=== PATIENT | male | born 1995 | race Two or more races ===

== ENCOUNTER 2025-06-05 16:53 | Emergency (ER) | payer OTHER ==
[~2025-06-05] VITALS: Ht 172.7 cm; Wt 100.0 kg
--- NOTE | 2025-06-05 17:19 | ED.PDOC ---
HPI Comments HPI: 29 year old male presents to the emergency department via EMS with a chief compliant of syncope onset today (06/05/25). Per EMS, patient donated Plasma earlier today, donates twice a week, was at home taking a shower when he experienced a syncopal episode. Patient states he is currently experiencing generalized weakness as well as LT mid thoracic ribcage pain. Upon EMS arrival, patient had orthostat positive, BP 89/50, HR 40, fluids were given in route to ED. Patient states syncopal episode was not witnessed, lasted less than a minute and second episode occurred in route to ED, was witnessed by EMS. No other symptoms or modifying factors present at this time. Initial Vitals BP: 112/76 HR: 86 RR: 16 O2: 99% Temp: 97.7F Past Medical History: Denies Past Surgical History:Denies Social History: Denies ETOH, smoking, and drug use. Medications: Denies Allergies: NKDA HPI: Poor Historian. Past Medical History: Past Surgical History: REVIEW OF SYSTEMS: CONSTITUTIONAL: Denies acute: fever, diaphoresis, chills, HEAD: Denies acute: headache, photophobia Eyes: Denies acute: Double vision, vision loss, eye pain, eye discharge. EARS: Denies acute: tinnitus, hearing loss, ear discharge, ear pain, THROAT: Denies acute: sore throat, swelling, difficulty swallowing , pain with swallowing, change in voice. NECK: Denies acute: neck pain, neck swelling, stiff neck. HEART: Denies acute : chest pain, palpitations, LUNGS: Denies acute: SOB, wheezing, cough, hemoptysis ABDOMEN: Denies acute: abdominal pain, Nausea, Vomiting, diarrhea, melena , hematemesis, hematochezia SKIN: Denies acute: rash, redness, lesions, itchiness. EXTREMITIES: Denies acute: calf pain, numbness, tingling, weakness, denies pain in extremity. Denies acute: Low back pain. Neuro: Denies acute: focal neurological deficit, motor or sensory focal neurological deficit, tremors, seizure like activity, confusion, dizziness, change in mental status, loss of bowel or bladder function, cauda equina like symptoms. : Denies acute: dysuria, hematuria, flank pain, increase in urinary frequency. PSYCH: Denies acute: hallucination, suicidal ideation, homicidal ideation. PHYSICAL EXAM: General: --no------acute distress, awake and alert. Head: normocephalic, atraumatic. Neck: supple, trachea is midline, no swelling. Cervical spine: Palpation of the posterior midline of the cervical spine reveals no focal swelling, erythema, focal tenderness to palpation. Patient has normal range of motion. Throat: Normal phonation. Eyes:, no erythema, no purulent discharge, no proptosis, no icterus. Heart: regular rate, regular rhythm, no significant murmur appreciated. Lungs: no apparent respiratory distress, Able to speak in full sentences. No wheezing, no rhonchi, no crackles. No stridors Clear to auscultation bilaterally. Abdomen: non tender to palpation, non distended, soft, no guarding, no rebound, + bowel sounds. Palpation of the area of complaint. Patient points to his left posterior mid ribcage focal tenderness to palpation. No crepitus appreciated. Neuro: Awake, Alert, oriented to name, self, situation, follows commands GCS=15. Speech is normal. Skin: no petechia, no purpura, no cyanosis, non-pale, not jaundice. Lower extremities: --no - Pitting edema no deformity, no focal swelling, no calf TTP. Makes eye contact. moves all four extremities. Face: no apparent facial droop. PERRLA, EOM-I CN 2-12 are grossly intact, No nystagmus. No nuchal rigidity, Kernig's sign, Brudzinski's sign, no meningeal signs. ED COURSE: DISCLAIMER: This medical document was created using an electronic medical record system with voice recognition software and computerized dictation system. Although this document has been carefully reviewed, there might still be some phonetic and typographical errors. Occasional wrong-word or "sound-alike" substitutions may have occurred due to the inherent limitations of voice recognition software. These areas are purely typographical due to imperfections of the software programs and do not reflect any compromise in the patient's medical care. Please read the chart carefully and recognize, using context, where these substitutions have occurred. Time Seen by MD: 17:05 Reviewed Notes: Medications, Allergies Allergies: Coded Allergies: NO KNOWN ALLERGIES (Unverified , 06/05/25) Information Source: Patient, Emergency Med Personnel Mode of Arrival: EMS Severity: Moderate Timing: Hours Duration: Since onset Prehospital treatment: None Cardiac Risk Factors: None PE Risk Factors: None History of: None Modifying Factors: Nothing Associated Signs and Symptoms: Syncope Past Medical History PAST MEDICAL HISTORY: Denies Surgical History: Denies all surgeries Family History Family History: Reviewed,noncontributory to illness, No family hx of Cancer, No family hx of DM, No family hx of Heart mariel, No family hx of HTN, No family hx ofKidney mariel, No family hx of Liver mariel, No family hx of Lung mariel, No family hx of Stroke Social History Smoker: Non-Smoker Alcohol: Denies ETOH Use Drugs: Denies Drug Use Lives In: Home Was a procedure done? Was a procedure done?: No X-Ray, Labs, Meds, VS Vital Signs Date Time Temp Pulse Resp B/P (MAP) Pulse Ox O2 Delivery O2 Flow Rate FiO2 06/05/25 20:19 97.4 89 16 129/58 (81) 97 97.4 06/05/25 20:19 89 17 98 06/05/25 18:23 98 116/69 103 115/71 06/05/25 17:06 97.7 86 16 112/76 (88) 99 97.7 Lab Test 06/05/25 20:35 06/05/25 18:40 06/05/25 17:35 06/05/25 17:30 Range/Units Troponin I High Sensitivity < 3 L < 3 L < 3 L </=54 ng/L White Blood Count 16.3 H 4.4-10.8 10^3/uL Red Blood Count 5.46 4.5-5.90 10^6/uL Hemoglobin 16.8 13.5-17.5 g/dL Hematocrit 49.4 41.0-53.0 % Mean Corpuscular Volume 90.4 80.0-100.0 fL Mean Corpuscular Hemoglobin 30.7 28.0-32.0 pg Mean Corpuscular Hemoglobin Concent 33.9 32.0-36.0 g/dL Red Cell Distribution Width 13.1 11.8-14.3 % Platelet Count 291 140-450 10^3/uL Mean Platelet Volume 8.1 6.9-10.8 fL Neutrophils (%) (Auto) 84.8 H 37.0-80.0 % Lymphocytes (%) (Auto) 7.8 L 10.0-50.0 % Monocytes (%) (Auto) 5.8 0.0-12.0 % Eosinophils (%) (Auto) 1.4 0.0-7.0 % Basophils (%) (Auto) 0.2 0.0-2.0 % Neutrophils # (Auto) 13.9 H 1.6-8.6 10 ^3/uL Lymphocytes # (Auto) 1.3 0.4-5.4 10 ^3/uL Monocytes # (Auto) 0.9 0-1.3 10 ^3/uL Eosinophils # (Auto) 0.2 0-0.8 10 ^3/uL Basophils # (Auto) 0 0-0.2 10 ^3/uL Nucleated Red Blood Cells 0.1 % Sodium Level 140 136-145 mmol/L Potassium Level 3.5 3.5-5.1 mmol/L Chloride Level 111 H 98-107 mmol/L Carbon Dioxide Level 21 20-31 mmol/L Anion Gap 8 5-15 Blood Urea Nitrogen 14 9-23 mg/dL Creatinine 0.88 0.700-1.30 mg/dL Glomerular Filtration Rate Calc 119 >90 mL/min BUN/Creatinine Ratio 15.9 10.0-20.0 Serum Glucose 130 H 74-106 mg/dL Lactic Acid Level 0.7 0.4-2.0 mmol/L Calcium Level 9.4 8.7-10.4 mg/dL Total Bilirubin 1.2 H 0.2-1.0 mg/dL Aspartate Amino Transferase (AST) 21 13-40 U/L Alanine Aminotransferase (ALT) 26 7-40 U/L Alkaline Phosphatase 57 46-116 U/L Total Protein 5.9 5.7-8.2 g/dL Albumin 4.0 3.2-4.8 g/dL Urine Color Yellow Yellow Urine Clarity Clear Clear Urine pH 6.0 5.0-9.0 Urine Specific Sebastian 1.022 1.001-1.035 Urine Protein Negative Negative Urine Ketones Negative Negative Urine Blood Negative Negative /uL Urine Nitrite Negative Negative Urine Bilirubin Negative Negative Urine Urobilinogen Normal Negative mg/dL Urine Leukocyte Esterase Negative Negative /uL Urine RBC 2 0 - 3 /hpf Urine Microscopic WBC 2 0-3 /HPF Urine Squamous Epithelial Cells Few <5 /hpf Urine Bacteria Few H None Seen /hpf Urine Mucus Few None Seen Urine Glucose Normal Normal mg/dL Current Medications Medications (Trade) Dose Ordered Sig/Dhaval Route Start Time Stop Time Status Last Admin Sodium Chloride 1,000 ml @ 1,000 mls/hr Q1H ONCE IV 06/05/25 17:30 06/05/25 18:29 DC 06/05/25 17:36 Ceftriaxone Sodium 50 ml @ 100 mls/hr ONCE ONCE IV 06/05/25 21:00 06/05/25 21:29 DC 06/05/25 21:29 [place] [id number] Ph: [phone] DIAGNOSTIC IMAGING Diagnostic Imaging Report : [id number] Signed PATIENT: CELESTE LEON ACCT: [id number] UNIT: [id number] : 1995 LOC: ER ROOM / BED: / AGE / SEX: 29 / M ADM STATUS: REG ER SERVICE [id number] ORDERING PHYSICIAN: KEYUR SHEN DO PROCEDURE(s): CX2CT - CHEST WITHOUT CONTRAST REASON: fall, Left post ribcage pain ORDER NUMBER(s): [id number], ACCESSION NUMBER(s): [id number] Procedure: CT CHEST WITHOUT CONTRAST Study Date and Requested Time: 06/05/2025 06:26 PM History: fall, Left post ribcage pain Comparison: None Dose: CTDI: 23.48 mGy DLP: 974.33 mGycm Technique: Multiplanar images obtained through the chest without contrast Findings: The thyroid gland is unremarkable. Heart size is within normal limits. No evidence of aortic aneurysm. Pulmonary trunk is normal in size. No pneumothorax, pleural effusion or focal airspace consolidation. Bilateral lower lobe atelectasis. Partial view of the upper abdomen is unremarkable. Subcentimeter bilateral axillary lymph nodes. Soft tissues are unremarkable. No evidence of acute traumatic fractures. Impression: No evidence of acute abdominopelvic abnormality. ATED BY: OLGA MCCLELLAN DO DICTATED DATE/TIME: 06/05/251855 SIGNED BY: OLGA MCCLELLAN DO SIGNED DATE/TIME: 06/05/251855 CC: Time of 1ST Reevaluation: 17:35 Reevaluation 1ST: Unchanged Patient Education/Counseling: Diagnosis, Treatment Family Education/Counseling: No Family Present Departure 1 Departure Time of Disposition: 20:59 Impression: Primary Impression: Syncope due to orthostatic hypotension Disposition: 01 HOME / SELF CARE / HOMELESS Condition: Stable Additional Instructions: Additional instructions: You MUST follow-up with your primary care/family doctor in 1 to 2 days. If you are unable to see your primary care/family doctor, please return to our emergency room for re-assessment and re-evaluation in 1 to 2 days. Return to the emergency room here in our facility or to the nearest ER [facility] if your symptoms change or worsen. CONSULTATIONS: you MUST Follow-up for consultation as soon as possible with: -neurology and cardiology in 1-2 days. Please call for appointment You MUST call the consultants office yourself to make an appointment. You may need to arrange that through your insurance and/or your primary/family doctor. If you are unable to see the business objects consultant in 1 to 2 days, you must return to our emergency room (or any other ER of your choice) for re-assessment and re- evaluation. Adequate fluid hydration. Monitoring blood pressure and heart rate at least 3 times a day. Do not donate any blood products in the next two weeks Discharged With: Self Critical Care Note Critical Care Time?: No I personally scribed for KEYUR SHEN DO ([email or web address]) on 06/05/25 at 17:19. Electronically submitted by Leeanne Oseguera ([email or web address]). I personally scribed for KEYUR SHEN DO ([email or web address]) on 06/05/25 at 17:28. Electronically submitted by Leeanne Oseguera ([email or web address]). I personally scribed for KEYUR SHEN DO ([email or web address]) on 06/05/25 at 18:22. Electronically submitted by Leeanne Oseguera ([email or web address]). I personally scribed for KEYUR SHEN DO ([email or web address]) on 06/05/25 at 20:32. Electronically submitted by Leeanne Oseguera ([email or web address]). I personally scribed for KEYUR SHEN DO ([email or web address]) on 06/05/25 at 21:40. Electronically submitted by Leeanne Oseguera ([email or web address]). KEYUR SHEN DO Jun 05, 2025 17:19
[2025-06-05] MEDS: SODIUM CHLORIDE 0.9% 1,000 ML IV ONE (17:36)
[2025-06-05 17:49] LABS: Hematocrit 49.4 % (41.0-53.0); Hemoglobin 16.8 g/dL (13.5-17.5); Mean Corpuscular Hemoglobin 30.7 pg (28.0-32.0); Mean Corpuscular Volume 90.4 fL (80.0-100.0); Nucleated Red Blood Cells % 0.1 %
[2025-06-05 18:07] LABS: Alanine Aminotransferase 26 U/L (7-40); Albumin 4.0 g/dL (3.2-4.8); Alkaline Phosphatase 57 U/L (46-116); Anion Gap 8 (5-15); BUN/Creatinine Ratio 15.9 (10.0-20.0); Bilirubin, Total 1.2 mg/dL (0.2-1.0); Blood Urea Nitrogen 14 mg/dL (9-23); Calcium 9.4 mg/dL (8.7-10.4); Carbon Dioxide 21 mmol/L (20-31); Chloride 111 mmol/L (98-107); Glucose 130 mg/dL (74-106); Potassium 3.5 mmol/L (3.5-5.1); Sodium 140 mmol/L (136-145); Total Protein 5.9 g/dL (5.7-8.2)
--- NOTE | 2025-06-05 18:58 | DVH ---
Procedure: CT CHEST WITHOUT CONTRAST Study Date and Requested Time: 06/05 06:26 PM History: fall, Left post ribcage pain Comparison: None Dose: CTDI: 23.48 mGy DLP: 974.33 mGycm Technique: Multiplanar images obtained through the chest without contrast Findings: The thyroid gland is unremarkable. Heart size is within normal limits. No evidence of aortic aneurysm. Pulmonary trunk is normal in siz e. No pneumothorax, pleural effusion or focal airspace consolidation. Bilateral lower lobe atelectasis. Partial view of the upper abdomen is unremarkable. Subcentimeter bilateral axillary lymph nodes. Soft tissues are unremarkable. No evidence of acute tra umatic fractures. Impression: No evidence of acute abdominopelvic abnormality.
[2025-06-05 20:14] LABS: Urine Protein, UAD Negative (Negative)
[2025-06-05 20:19] VITALS: BP 129/58; PULSE 89; RESP 17; TEMP 97.4; O2SAT 98
[2025-06-05] MEDS: cefTRIAXone 1GM/50ML D5W 50 ML IV ONE (21:29)
== END 2025-06-05 21:52 | disposition home or self-care (01) ==
LOC: ER 16:53 → EDBD 16:53 → ER 21:52
DX: R55 Syncope and collapse (principal)
CPT/HCPCS: 36415; 71250; 80053; 81001; 82947; 83605; 84484; 85025; 87040; 96361; 96365; 99285; J0696; J7030